=== PATIENT | female | born 1995 | race Hispanic/Latino ===

== ENCOUNTER 2017-09-02 23:10 | Emergency (ER) | payer BC ==
[~2017-09-02] VITALS: Ht 165.1 cm; Wt 72.6 kg
[2017-09-03] MEDS ORDERED: BACTRIM DS TAB1 EACH PO (01:06)
[2017-09-03] MEDS ORDERED: PYRIDIUM100 MG PO (01:11)
== END 2017-09-03 01:20 | disposition home or self-care (01) ==
LOC: FSED 23:17
DX: R30.0 Dysuria (principal); N39.0 Urinary tract infection, site not specified
CPT/HCPCS: 99282